=== PATIENT | female | born 1990 | race Caucasian/White ===

== ENCOUNTER 2023-09-29 20:18 | Observation (INO) | payer BC, SELFPAY ==
[2023-09-29] MEDS: NIFEdipine 10 MG CAPSULE PO (21:14)
[2023-09-29 21:49] LABS: Add Manual Diff / Slide Review NO; Basophils Absolute Auto 200 /uL (0-100); Basophils Percent Auto 1.5 % (0-2); Eosinophils Absolute Auto 100 /uL (0-450); Eosinophils Percent Auto 1.1 % (2-4); Hematocrit 34.8 % (36-46); Lymphocytes Absolute Auto 2900 /uL (1100-4500); Lymphocytes Percent Auto 21.3 % (25-40); Mean Corpuscular HGB Conc 34.4 % (30-36); Mean Corpuscular Hemoglobin 30.4 PG (26-34); Mean Corpuscular Volume 88.2 fL (80-100); Monocytes Absolute Auto 1200 /uL (0-900); Monocytes Percent Auto 8.6 % (3-14); Neutrophils Absolute Auto 9300 /uL (1500-7000); Neutrophils Percent Auto 67.5 % (50-75); Platelet Count 298 X10^3/uL (150-400); Red Blood Cell Count 3.94 X10^6/uL (4.0-5.2); Red Cell Distribution Width 13.3 % (11.6-14.8); White Blood Cell Count 13.8 X10^3/uL (4.5-11.0)
--- NOTE | 2023-09-29 21:54 | P.HPOB_ITS ---
OB HPI Date/Time Date Patient Seen: 09/29/23 Time Patient Seen: 21:54 History of Present Condition Chief complaint: HBP 38 wks 4 days : 1 Para: 0 Estimated Date of Delivery: 10/09/23 Estimated Gestational Age (weeks): 38+4 Narrative: Jayleen Humphreys is a 33 year old female at 38+4wks presenting today for elevated blood pressures at home. She states that she has had elevated blood pressures in the last couple of weeks, but did not meet criteria for gestational HTN. She was told to monitor her blood pressures at home, and had elevated readings this afternoon. She then called her provider at [facility], and was told to go to the nearest facility. Pt just moved to [place]. Pt reports malodorous vaginal discharge since having her membranes swept this week, but denies feeling leaking fluid. She denies headaches, vision changes, right upper quadrant pain, chest pain, or shortness of breath. Indications Indication for induction OB: gestational HTN/pre-eclampsia History of Present care: good care Preadmission Labs Blood type: B (+) positive Evaluation Evaluation Baseline heart rate: 120 Variability: Moderate (11-25) monitor accelerations: Present Monitor Decelerations: Absent Contraction Frequency (minutes): 10 Uterine Contraction Intensity: Mild Status: Category l Dilation (cm): 2 Dilation: 1-2 cm Effacement: 0-30% station: -3 Position of cervix: posterior Consistency: medium Hua score: 2 Non-invasive Membranes Rupture Test: negative Comments: cervical exam per RN Meds Home Medications and Allergies Allergies Allergy/AdvReac Type Severity Reaction Status Date / Time No Known Drug Allergies Allergy Verified 09/29/23 21:07 Review of Systems Review of Systems ROS: Yes All systems reviewed with the patient and are negative except as otherwise documented OB Exam Vital signs Pulse Rate: 65 Temperature: 97.5 F Narrative Exam Narrative: Initial BPs: 175/100, 171/90, 161/93, 161/98, 163/107, 137/93 (15min after 10mg PO nifedipine) HENMT Head: normal to inspection Resp Effort & Inspection: normal respiratory effort and able to speak in complete sentences Cardio Rate: regular rate Extremities Lower extremity: Yes edema (bilateral 2+ pitting) GI Inspection: normal to inspection Objective Labs 09/29/23 21:30 09/29/23 21:30 Labs: ALT/AST 14/17, uric acid 5.8, urine p:c 0.2 Assessment and Plan Assessment and Plan Assessment and Plan narrative: 33yo at 38+4wks now with newly diagnosed severe gestational hypertension. Her blood pressures responded to 10mg PO nifedipine, now normal to mild range. She remains asymptomatic. Her labs are within normal parameters. Given her new diagnosis, induction of labor was recommended. In discussion with the patient and her , they would prefer to be at a facility with NICU care available. She is currently stable for transfer, thus discussed with accepting provider Dr. Mcmahon at [facility] in [place]. -started on magnesium for seizure prophylaxis, given severe range blood pressures upon arrival -given additional dose of long-acting labetalol 100mg PO -plan for transport via [facility] Time Spent with Patient Total time spent with greater than 50% in coordination of care (as documented) at patient's floor/unit and/or counseling patient:: 25 - 35 minutes
[2023-09-29 22:02] LABS: Aspartate Aminotransferase 17 IU/L (14-36); Blood Urea Nitrogen 9 mg/dL (7-17); Estimated Glomerular Filt Rate > 60 mL/min (>60); Uric Acid 5.8 mg/dL (2.5-6.2)
[2023-09-29 22:04] VITALS: PULSE 65; TEMP 36.4
[2023-09-29 22:27] LABS: Alanine Aminotransferase 14 IU/L (<35)
[2023-09-29 22:55] VITALS: BP 145/88; PULSE 64
[2023-09-29] MEDS: LABETALOL 100 MG TABLET PO (22:55)
[2023-09-29] MEDS: MAGNESIUM SULFATE 4 GM/100 ML PIGGYBACK IV (22:56)
[2023-09-29] MEDS: LACTATED RINGERS 1,000 ML 100 ML IV (22:56)
[2023-09-29 22:58] LABS: Creatinine Urine Random 87.2 mg/dL; Protein (Total) Urine Random 19 mg/dL (0-12); Protein Creatinine Ratio Urine 0.21 GRAM/24H
== END 2023-09-29 23:39 | disposition home or self-care (01) ==
PROVIDERS: Admitting Provider Student in an Organized Health Care Education/Training Program; Referring Provider Student in an Organized Health Care Education/Training Program; Visit Provider Student in an Organized Health Care Education/Training Program
DX: O13.3 Gestational [pregnancy-induced] hypertension without significant proteinuria, third trimester (principal); Z3A.38 38 weeks gestation of pregnancy
CPT/HCPCS: 59025; 59050; 82570; 84112; 84156; 84450; 84460; 84550; 85025; 86850; 86900; 86901; 96360; 96361; 99235; G0378; G0379; J3475